=== PATIENT | female | born 1945 | race Caucasian/White ===

== ENCOUNTER 2022-11-11 14:17 | Outpatient (CLI) | payer MEDICARE | END 2022-11-11 14:18 | disposition home or self-care (01) | LOC: CSHRAD 14:17 | PROVIDERS: ATTEND Family Medicine | DX: R22.1 Localized swelling, mass and lump, neck (principal) | CPT/HCPCS: 71046 ==

== ENCOUNTER 2022-11-21 08:05 | Outpatient (CLI) | payer MEDICARE ==
[2022-11-21] MEDS ORDERED: Iopamidol 300 61% 100 ML VIAL FS ONE (15:26)
== END 2022-11-21 08:06 | disposition home or self-care (01) ==
LOC: CSHCT 08:05
PROVIDERS: ATTEND Family Medicine
DX: R22.1 Localized swelling, mass and lump, neck (principal)
CPT/HCPCS: 70491; 71260; Q9967

== ENCOUNTER 2023-01-28 13:44 | Outpatient (CLI) | payer MEDICARE | END 2023-01-28 13:45 | disposition home or self-care (01) | LOC: CSHMAMMO 13:44 | PROVIDERS: ATTEND Family Medicine | DX: N64.89 Other specified disorders of breast (principal) | CPT/HCPCS: 77065; G0279 ==

== ENCOUNTER 2024-01-27 10:19 | Outpatient (CLI) | payer MEDICARE | END 2024-01-27 10:20 | disposition home or self-care (01) | LOC: CSHMAMMO 10:19 | PROVIDERS: ATTEND Family Medicine | DX: Z12.31 Encounter for screening mammogram for malignant neoplasm of breast (principal); Z80.3 Family history of malignant neoplasm of breast; Z91.89 Other specified personal risk factors, not elsewhere classified | CPT/HCPCS: 77063; 77067 ==

== ENCOUNTER 2024-12-22 10:33 | Outpatient (CLI) | payer MEDICARE ==
[2024-12-22] MEDS ORDERED: Iopamidol 370 76% 100 ML VIAL ONE (12:48)
[2024-12-22 14:14] LABS: Estimated GFR - POC 57.0
== END 2024-12-22 10:34 | disposition home or self-care (01) ==
LOC: CSHCT 10:33
PROVIDERS: ATTEND Physician Assistant Medical
DX: Z80.0 Family history of malignant neoplasm of digestive organs (principal); K76.9 Liver disease, unspecified; N28.1 Cyst of kidney, acquired; I71.40 Abdominal aortic aneurysm, without rupture, unspecified
CPT/HCPCS: 74170; 82565; Q9967